=== PATIENT | female | born 1950 | race African-American/Black ===

== ENCOUNTER 2018-05-07 09:53 | Day surgery (SDC) | payer MEDICAID ==
[2018-05-07] MEDS ORDERED: INDOMETHACIN 50 MG SUPP PR (13:00)
[2018-05-07] MEDS ORDERED: PROPOFOL 20 ML (13:27)
[2018-05-07] MEDS ORDERED: ROCURONIUM 50 MG INJ (13:31)
[2018-05-07] MEDS ORDERED: DEXAMETHASONE 4 MG/ML 1 ML INJ (13:55)
[2018-05-07] MEDS ORDERED: ONDANSETRON 4 MG INJ ×2 (13:55→14:36)
[2018-05-07] MEDS ORDERED: SUGAMMADEX SODIUM 200 MG/2 ML VIAL IV (14:02)
[2018-05-07] MEDS ORDERED: MIDAZOLAM 1 MG/ML 2 ML INJ IV (14:30)
[2018-05-07] MEDS ORDERED: OXYCODONE/ACETAMINOPHEN (5/325) TAB PO ×2 (14:30)
[2018-05-07] MEDS ORDERED: ALBUTEROL 0.083% (NEB) 2.5 MG/3 ML AMP HHN (14:30)
[2018-05-07] MEDS ORDERED: MEPERIDINE 25 MG INJ IV (14:30)
[2018-05-07] MEDS ORDERED: EPHEDrine SULFATE 50 MG/5 ML SYG IV (14:30)
[2018-05-07] MEDS ORDERED: FENTAnyl 50 MCG/ML VIAL IV ×3 (14:30)
[2018-05-07] MEDS ORDERED: DIPHENHYDRAMINE 50 MG INJ IV (14:30)
[2018-05-07] MEDS ORDERED: hydrALAzine 20 MG INJ IV (14:30)
[2018-05-07] MEDS ORDERED: HYDROmorphONE 1 MG/5 ML IV SYRINGE IV ×3 (14:30)
[2018-05-07] MEDS ORDERED: LABETALOL HCL 20MG INJ IV (14:30)
[2018-05-07] MEDS ORDERED: KETOROLAC 30 MG INJ (14:46)
[2018-05-07] MEDS: ONDANSETRON 4 MG INJ IV (14:52)
[2018-05-07] MEDS: KETOROLAC 30 MG INJ IV (14:52)
== END 2018-05-07 16:00 | disposition home or self-care (01) ==
LOC: GIL 09:53 → SDS 09:53 → GIL 16:00
DX: K83.8 Other specified diseases of biliary tract (principal)
CPT/HCPCS: 43277; 74330